=== PATIENT | female | born 1960 | race Caucasian/White ===

== ENCOUNTER 2016-03-31 15:40 | Outpatient (CLI) | payer OTHER | END 2016-03-31 15:41 | disposition home or self-care (01) | LOC: HPCALD 15:40 | PROVIDERS: ATTEND Physician Assistant | DX: Z01.419 Encounter for gynecological examination (general) (routine) without abnormal findings (principal) ==

== ENCOUNTER 2016-07-30 09:22 | Emergency (ER) | payer OTHER ==
[2016-07-30] MEDS ORDERED: methylPREDNISolone Acetate 40 mg/ml Vial ONE (10:11)
--- NOTE | 2016-07-30 11:22 | RAD ---
2 VIEWS RIGHT HIP: Date: 07/30/16 COMPARISON: None. HISTORY: Right hip pain. FINDINGS: Two views of the right hip show no evidence of acute fracture or dislocation. No degenerative change s are seen. Phleboliths are seen in the pelvis. IMPRESSION: No significant right hip abnormality. POS: [facility]
== END 2016-07-30 10:28 | disposition home or self-care (01) ==
LOC: BURERS 09:22
DX: M25.551 Pain in right hip (principal); D50.9 Iron deficiency anemia, unspecified; J44.9 Chronic obstructive pulmonary disease, unspecified; F31.9 Bipolar disorder, unspecified; F41.9 Anxiety disorder, unspecified; F17.210 Nicotine dependence, cigarettes, uncomplicated; Z79.899 Other long term (current) drug therapy
CPT/HCPCS: 96372; J1030

== ENCOUNTER 2016-11-03 15:33 | Outpatient (CLI) | payer OTHER ==
[2016-11-03 15:58] LABS: ALT (SGPT) 37 U/L (8-55); AST (SGOT) 29 U/L (5-34); Albumin 4.3 g/dL (3.5-5.0); Alkaline Phosphatase 113 U/L (40-150); Anion Gap 18 mmol/L (10-20); BUN (Urea Nitrogen) 13 mg/dL (9.8-20.1); Bilirubin, Total 0.2 mg/dL (0.2-1.2); Calc. Creatinine Clearance 0 mL/min (70-130); Calcium 9.1 mg/dL (7.8-10.44); Carbon Dioxide 20 mmol/L (22-29); Cardiac Risk 3.4 (Less than 4.5); Chloride 106 mmol/L (98-107); Cholesterol 179 mg/dl (< 200 Desired); Estimated GFR-MDRD 78; Globulin 2.4 g/dL (2.4-3.5); Glucose 107 mg/dL (70-105); HDL Cholesterol 52 mg/dL (>60 Neg Risk); LDL Cholesterol, Calculated 75 mg/dL; Potassium 4.4 mmol/L (3.5-5.1); Protein, Total 6.7 g/dL (6.0-8.3); Sodium 140 mmol/L (136-145); Triglycerides 260 mg/dL (Less than 150)
[2016-11-03 17:25] LABS: Eosinophils 4 % (0-10); Hemoglobin 13.7 g/dL (12.0-16.0); Lymphocytes 24 % (21-51); MDiff Complete? YES; Mean Corpuscular HGB CONC 33.1 g/dL (32.0-36.0); Mean Corpuscular Hemoglobin 29.1 pg (27.0-31.0); Mean Corpuscular Volume 87.8 fl (81.0-99.0); Mean Platelet Volume 7.2 fL (7.4-10.4); Monocytes 9 % (0-10); Neutrophil 62 % (42-75); Platelet Count 192 thou/uL (130-400); RBC Distribution Width 11.4 % (11.5-14.5); Red Blood Cell (RBC) Count 4.72 mill/uL (4.20-5.40); White Blood Cell (WBC) Count 4.4 thou/uL (4.8-10.8)
== END 2016-11-03 15:34 | disposition home or self-care (01) ==
LOC: HPCALD 15:33
PROVIDERS: ATTEND Physician Assistant
DX: E78.2 Mixed hyperlipidemia (principal)
CPT/HCPCS: 80053; 80061; 84443; 85025

== ENCOUNTER 2017-02-23 09:37 | Emergency (ER) | payer OTHER ==
[2017-02-23] MEDS ORDERED: traMADol HCl 50 MG TAB ONE (09:58)
[2017-02-23 09:59] LABS: Bilirubin Negative (Negative); Blood, Urine Small (Negative); Clarity Slightly Cloudy (Clear); Glucose, Urine (Dipstick) Negative (Negative); Leukocyte Large (Negative); Nitrite Negative (Negative); Protein, Urine (Dipstick) Negative (Neg-Trace); Urobilinogen 0.2 mg/dL (0.2-1.0)
[2017-02-23 10:08] LABS: Bacteria/HPF 1+ HPF (None Seen); RBC/HPF 0-3 HPF (0-3); Squamous Epithelial 0-3 HPF (0-3); WBC/HPF 21-50 HPF (0-3)
[2017-02-23] MEDS ORDERED: Sulfameth/Trimethoprim DS 800-160mg TAB ONE (10:13)
== END 2017-02-23 10:17 | disposition home or self-care (01) ==
LOC: BURERS 09:37
DX: N30.00 Acute cystitis without hematuria (principal); D50.9 Iron deficiency anemia, unspecified; E78.5 Hyperlipidemia, unspecified; F31.9 Bipolar disorder, unspecified; F41.9 Anxiety disorder, unspecified; F17.210 Nicotine dependence, cigarettes, uncomplicated; J44.9 Chronic obstructive pulmonary disease, unspecified; Z79.899 Other long term (current) drug therapy
CPT/HCPCS: 81003; 81015; 87086; 99283

== ENCOUNTER 2017-03-31 18:04 | Emergency (ER) | payer OTHER ==
--- NOTE | 2017-03-31 20:49 | RAD ---
PORTABLE CHEST 03/31/17 An AP portable film at 1817 is compared with a 02/08/13 study. The heart is normal in size. The lungs show no acute infiltrate. Minor haziness over the lower chest is thought to be due to the overlying soft tissues. There is no sign of pneumonia, pleural effusion, or other acute change. The trachea is midline. IMPRESSION: No acute thoracic finding. POS: HOME
--- NOTE | 2017-03-31 21:42 | CT ---
CT OF THE CERVICAL SPINE 03/31/[address] of the cervical spine was done following trauma. Axial slices were acquired and then neely l and sagittal reconstructions were done. There is loss of the normal cervical lordosis which might be due to muscle spasm. No fracture, disloc ation, or acute bony change was seen. The C1 to dens distance is normal and the soft tissues are norm al in thickness. Some nonspecific cervical adenopathy was seen bilaterally. Findings by level follow: C1-C2: No acute findings. C2-C3: No acute findings. C3-C4: There may be a centrally protruding disc that effaces the thecal sac. MRI would show this much better. There is moderate foraminal narrowing on the left. This disc space is narrowed. C4-C5: There appears to be a prominent central disc protrusion that probably significantly impinges u newton the spinal cord and thecal sac. The AP diameter of the canal is greatly reduced. Severe bilateral foraminal narrowing is present. C5-C6: There is probably a disc osteophyte complex centrally. Foramina are patent. C6-C7: No acute findings. C7-T1: No acute findings. T1-T2: No acute findings. Infiltrative changes are seen in the left upper lobe anteriorly. Some lesser infiltrative changes are seen in the medial right upper lobe. These are more likely old than new. IMPRESSION: 1. Loss of cervical lordosis but no fracture see. 2. Significant degenerative changes throughout the spine as noted above, in particular, there is significant central canal stenosis at C4-C5 with a centrally protruding disc and possibly a central protrusion at C3-C4. An MRI is recommended to investigate the status os the spine and spinal cord giv en the moderately severe degree of what appears to be a disc protrusion and impact upon the cord. POS: HOME
== END 2017-03-31 19:42 | disposition home or self-care (01) ==
LOC: BURERS 18:04
DX: S16.1XXA Strain of muscle, fascia and tendon at neck level, initial encounter (principal); J98.01 Acute bronchospasm; E78.5 Hyperlipidemia, unspecified; E78.00 Pure hypercholesterolemia, unspecified; D50.0 Iron deficiency anemia secondary to blood loss (chronic); J44.9 Chronic obstructive pulmonary disease, unspecified; F41.9 Anxiety disorder, unspecified; F31.9 Bipolar disorder, unspecified; F17.210 Nicotine dependence, cigarettes, uncomplicated; Z79.899 Other long term (current) drug therapy; W19.XXXA Unspecified fall, initial encounter
CPT/HCPCS: 71045; 72125; 94640; J7620

== ENCOUNTER 2017-05-10 15:11 | Emergency (ER) | payer OTHER ==
[2017-05-10] MEDS ORDERED: Ketorolac Tromethamine 60 MG/2 ML VIAL ONE (15:44)
== END 2017-05-10 15:54 | disposition home or self-care (01) ==
LOC: BURERS 15:11
DX: S16.1XXA Strain of muscle, fascia and tendon at neck level, initial encounter (principal); E78.5 Hyperlipidemia, unspecified; J44.9 Chronic obstructive pulmonary disease, unspecified; F41.9 Anxiety disorder, unspecified; F31.9 Bipolar disorder, unspecified; F17.210 Nicotine dependence, cigarettes, uncomplicated; W19.XXXA Unspecified fall, initial encounter; Y93.K1 Activity, walking an animal
CPT/HCPCS: 96372; J1885

== ENCOUNTER 2017-05-26 10:15 | Emergency (ER) | payer OTHER ==
[2017-05-26] MEDS ORDERED: Fentanyl 100 MCG/2 ML VIAL ONE (11:46)
[2017-05-26 11:53] LABS: #Basophils 0.1 thou/uL (0.0-0.2); #Eosinphils 0.2 thou/uL (0.0-0.7); #Monocytes 0.5 thou/uL (0.11-0.59); #Neutrophils 4.3 thou/uL (1.40-6.50); %Basophils 0.9 % (0.0-1.0); %Lymphocytes 28.5 % (21.0-51.0); %Monocytes 6.9 % (0.0-10.0); %Neutrophils 60.8 % (42.0-75.0); Anion Gap 14 mmol/L (10-20); BUN (Urea Nitrogen) 7 mg/dL (9.8-20.1); Calc. Creatinine Clearance 0 mL/min (70-130); Calcium 9.1 mg/dL (7.8-10.44); Carbon Dioxide 28 mmol/L (22-29); Chloride 103 mmol/L (98-107); Estimated GFR-MDRD 82; Glucose 88 mg/dL (70-105); Hemoglobin 13.9 g/dL (12.0-16.0); Mean Corpuscular HGB CONC 32.9 g/dL (32.0-36.0); Mean Corpuscular Hemoglobin 27.9 pg (27.0-31.0); Mean Corpuscular Volume 84.7 fl (81.0-99.0); Mean Platelet Volume 7.4 fL (7.4-10.4); Platelet Count 210 thou/uL (130-400); Potassium 3.8 mmol/L (3.5-5.1); RBC Distribution Width 12.6 % (11.5-14.5); Red Blood Cell (RBC) Count 4.97 mill/uL (4.20-5.40); Sodium 141 mmol/L (136-145); White Blood Cell (WBC) Count 7.1 thou/uL (4.8-10.8)
[2017-05-26 11:54] LABS: PTT 29.9 SEC (22.9-36.1); Prothrombin Time 13.3 SEC (12.0-14.7)
[2017-05-26] MEDS ORDERED: Dexamethasone 4 mg/ml Vial ONE (13:53)
--- NOTE | 2017-05-26 21:31 | CT ---
CT OF THE NECK SOFT TISSUES WITH CONTRAST: 05/26/[address] of the neck was performed after injection of IV contrast. The patient is recently post ante rior cervical fusion and presents with difficulty and pain and swallowing, including some difficulty breathing. Axial slices were acquired, then coronal and sagittal reconstructions were done. There is some increased soft tissue swelling anterior to the C4 level that causes slight effacement o f the airway and laryngeal region on the right side. There is a somewhat rounded low density area in the soft tissues that may be a fluid collection such as a hematoma. There is one single locule of gas within it, though this still could be postoperative change. While there is slight compression of the airway from the right side, the airway is still significantly patent. The lung apices are included o n the study are clear. An incidental finding on the study is a small ovoid low density area in the in ferior pole of the right lobe of the thyroid gland that measures about 7 mm in length. It would be be tter assessed with an elective ultrasound. IMPRESSION: Soft tissue swelling anterior to the C4 level where there was a recent fusion. There is a somewhat ro unded low density collection that may be fluid such as a hematoma just to the right of midline. The a irway is slightly effaced but remains fully patent. POS: HOME
== END 2017-05-26 14:16 | disposition home or self-care (01) ==
LOC: BURERS 10:15
DX: G89.18 Other acute postprocedural pain (principal); M96.840 Postprocedural hematoma of a musculoskeletal structure following a musculoskeletal system procedure; E78.5 Hyperlipidemia, unspecified; D50.0 Iron deficiency anemia secondary to blood loss (chronic); J44.9 Chronic obstructive pulmonary disease, unspecified; F31.9 Bipolar disorder, unspecified; F41.9 Anxiety disorder, unspecified; F17.210 Nicotine dependence, cigarettes, uncomplicated; Z79.899 Other long term (current) drug therapy
CPT/HCPCS: 70491; 80048; 85025; 85610; 85730; 96374; J1100; J3010

== ENCOUNTER 2017-07-03 19:49 | Emergency (ER) | payer OTHER | END 2017-07-03 20:08 | disposition home or self-care (01) | LOC: BURERS 19:49 | DX: Z48.89 Encounter for other specified surgical aftercare (principal); E78.00 Pure hypercholesterolemia, unspecified; E78.5 Hyperlipidemia, unspecified; D50.0 Iron deficiency anemia secondary to blood loss (chronic); J44.9 Chronic obstructive pulmonary disease, unspecified; F31.9 Bipolar disorder, unspecified; F41.9 Anxiety disorder, unspecified; F17.210 Nicotine dependence, cigarettes, uncomplicated | CPT/HCPCS: 99282 ==

== ENCOUNTER 2017-07-08 14:27 | Emergency (ER) | payer OTHER ==
[2017-07-08] MEDS ORDERED: Clindamycin 150 MG CAP ONE (15:54)
== END 2017-07-08 15:10 | disposition home or self-care (01) ==
LOC: BURERS 14:27
DX: T81.4XXA Infection following a procedure, initial encounter (principal); E78.5 Hyperlipidemia, unspecified; D50.9 Iron deficiency anemia, unspecified; J44.9 Chronic obstructive pulmonary disease, unspecified; F41.9 Anxiety disorder, unspecified; F31.9 Bipolar disorder, unspecified; F17.210 Nicotine dependence, cigarettes, uncomplicated; Z79.899 Other long term (current) drug therapy
CPT/HCPCS: 99283

== ENCOUNTER 2017-08-10 18:31 | Emergency (ER) | payer OTHER ==
[2017-08-10] MEDS ORDERED: Ketorolac Tromethamine 30 MG/ML VIAL ONE (18:45)
== END 2017-08-10 19:06 | disposition home or self-care (01) ==
LOC: BURERS 18:31
DX: G89.4 Chronic pain syndrome (principal); M54.2 Cervicalgia; E78.5 Hyperlipidemia, unspecified; D50.9 Iron deficiency anemia, unspecified; J44.9 Chronic obstructive pulmonary disease, unspecified; F41.9 Anxiety disorder, unspecified; F31.9 Bipolar disorder, unspecified; F17.210 Nicotine dependence, cigarettes, uncomplicated; Z79.899 Other long term (current) drug therapy
CPT/HCPCS: 96372; J1885

== ENCOUNTER 2017-09-14 08:01 | Emergency (ER) | payer OTHER ==
[2017-09-14 08:48] LABS: ALT (SGPT) 14 U/L (8-55); AST (SGOT) 11 U/L (5-34); Albumin 4.3 g/dL (3.5-5.0); Alkaline Phosphatase 116 U/L (40-150); Anion Gap 14 mmol/L (10-20); BUN (Urea Nitrogen) 9 mg/dL (9.8-20.1); Bilirubin, Total 0.2 mg/dL (0.2-1.2); Calc. Creatinine Clearance 0 mL/min (70-130); Calcium 9.5 mg/dL (7.8-10.44); Carbon Dioxide 25 mmol/L (22-29); Chloride 108 mmol/L (98-107); Estimated GFR-MDRD 79; Globulin 2.6 g/dL (2.4-3.5); Glucose 109 mg/dL (70-105); Lipase 39 U/L (8-78); Potassium 3.9 mmol/L (3.5-5.1); Protein, Total 6.9 g/dL (6.0-8.3); Sodium 143 mmol/L (136-145)
[2017-09-14 08:49] LABS: #Eosinphils 0.2 thou/uL (0.0-0.7); #Lymphocytes 1.6 thou/uL (1.20-3.40); #Monocytes 0.4 thou/uL (0.11-0.59); #Neutrophils 3.7 thou/uL (1.40-6.50); %Basophils 0.7 % (0.0-1.0); %Eosinophils 3.6 % (0.0-10.0); %Lymphocytes 26.8 % (21.0-51.0); %Monocytes 5.9 % (0.0-10.0); Hemoglobin 13.6 g/dL (12.0-16.0); Mean Corpuscular HGB CONC 36.6 g/dL (32.0-36.0); Mean Corpuscular Hemoglobin 28.4 pg (27.0-31.0); Mean Corpuscular Volume 77.6 fL (78.0-98.0); Mean Platelet Volume 7.5 fL (7.4-10.4); Platelet Count 221 thou/uL (130-400); RBC Distribution Width 10.9 % (11.5-14.5); Troponin I Less than 0.010 ng/mL (< 0.028); White Blood Cell (WBC) Count 5.9 thou/uL (4.8-10.8)
== END 2017-09-14 09:43 | disposition home or self-care (01) ==
LOC: BURERS 08:01
DX: R10.13 Epigastric pain (principal); E78.5 Hyperlipidemia, unspecified; J44.9 Chronic obstructive pulmonary disease, unspecified; F31.9 Bipolar disorder, unspecified; F41.9 Anxiety disorder, unspecified; F17.210 Nicotine dependence, cigarettes, uncomplicated; Z79.899 Other long term (current) drug therapy
CPT/HCPCS: 80053; 82553; 83690; 84484; 85025; 93005; 96374; 96375

== ENCOUNTER 2017-09-21 16:34 | Emergency (ER) | payer OTHER ==
--- NOTE | 2017-09-21 19:28 | RAD ---
RIGHT HAND THREE VIEWS: 09/21/2017 FINDINGS: No acute fracture is identified. There are three metallic objects seen in the interspace, between th e first and second metacarpals. I do not know if this is in the skin or if these are BBs embedded in the soft tissue. Correlate with clinical exam. There is little cortical irregularity of the distal radius that could be from old trauma but is certainly not new. The carpal bones appear normal. The digits show no fracture. IMPRESSION: No acute bony findings. See above. POS: HOME
== END 2017-09-21 17:10 | disposition home or self-care (01) ==
LOC: BURERS 16:34
DX: S60.221A Contusion of right hand, initial encounter (principal); I10 Essential (primary) hypertension; E78.5 Hyperlipidemia, unspecified; D50.9 Iron deficiency anemia, unspecified; F31.9 Bipolar disorder, unspecified; F41.9 Anxiety disorder, unspecified; F17.210 Nicotine dependence, cigarettes, uncomplicated; Z79.899 Other long term (current) drug therapy; Z71.6 Tobacco abuse counseling; W23.0XXA Caught, crushed, jammed, or pinched between moving objects, initial encounter
CPT/HCPCS: 99406

== ENCOUNTER 2018-01-13 08:04 | Emergency (ER) | payer OTHER ==
[2018-01-13 08:23] LABS: Bilirubin Negative (Negative); Blood, Urine Moderate (Negative); Clarity Cloudy (Clear); Glucose, Urine (Dipstick) Negative (Negative); Leukocyte Large (Negative); Nitrite Negative (Negative); Protein, Urine (Dipstick) Negative (Neg-Trace); Specific Gravity, Urine 1.015 (1.005-1.030); Urobilinogen 0.2 mg/dL (0.2-1.0); pH, Urine 6.5 (5.0-9.0)
[2018-01-13 08:30] LABS: Bacteria/HPF 1+ HPF (None Seen); Oval Fat Bodies/HPF 1+ HPF (None Seen); Renal Epithelial 0-3 HPF (0-3); Squamous Epithelial 0-3 HPF (0-3); WBC/HPF 21-50 HPF (0-3)
[2018-01-13] MEDS ORDERED: Adacel (T-DAP) 0.5 ML SYRINGE ONE (08:37)
== END 2018-01-13 09:00 | disposition home or self-care (01) ==
LOC: BURERS 08:04
DX: S61.052A Open bite of left thumb without damage to nail, initial encounter (principal); N39.0 Urinary tract infection, site not specified; E78.5 Hyperlipidemia, unspecified; D50.9 Iron deficiency anemia, unspecified; J45.909 Unspecified asthma, uncomplicated; J44.9 Chronic obstructive pulmonary disease, unspecified; F41.9 Anxiety disorder, unspecified; F31.9 Bipolar disorder, unspecified; F17.210 Nicotine dependence, cigarettes, uncomplicated; Z79.899 Other long term (current) drug therapy; W54.0XXA Bitten by dog, initial encounter
CPT/HCPCS: 81003; 81015; 87077; 87086; 87186; 90471; 90715

== ENCOUNTER 2018-03-29 16:21 | Outpatient (CLI) | payer OTHER ==
--- NOTE | 2018-03-29 18:08 | RAD ---
LEFT FOOT THREE VIEWS: 03/29/18 No fracture or periosteal reaction was seen. All bones appeared intact. IMPRESSION: No acute finding. POS: HOME
== END 2018-03-29 16:22 | disposition home or self-care (01) ==
LOC: BURRAD 16:21
PROVIDERS: ATTEND Physician Assistant
DX: M79.672 Pain in left foot (principal)

== ENCOUNTER 2018-06-25 16:36 | Emergency (ER) | payer OTHER ==
--- NOTE | 2018-06-25 23:06 | RAD ---
LEFT HIP TWO VIEWS: 06/25/18 No fracture or area of bony destruction is seen. The joint space is normal in width. There are the be ginnings of some bony spurring forming. The adjacent pubic ring appears intact. IMPRESSION: Minor degenerative changes. POS: HOME
== END 2018-06-25 18:20 | disposition home or self-care (01) ==
LOC: BURERS 16:36
DX: M25.552 Pain in left hip (principal); K21.9 Gastro-esophageal reflux disease without esophagitis; E78.5 Hyperlipidemia, unspecified; J44.9 Chronic obstructive pulmonary disease, unspecified; F41.9 Anxiety disorder, unspecified; F31.9 Bipolar disorder, unspecified; F17.210 Nicotine dependence, cigarettes, uncomplicated; Z79.899 Other long term (current) drug therapy; Z79.51 Long term (current) use of inhaled steroids